=== PATIENT | female | born 1960 | race Caucasian/White ===

== ENCOUNTER 2016-03-17 06:15 | Day surgery (SDC) | payer MEDICAID ==
[2016-03-16 14:46] LABS: BASOPHILS 0.5 % (0.0-2.0); EOSINOPHILS 1.5 % (0-7); HEMATOCRIT 38.5 % (36.0-48.0); IMMATURE GRANULOCYTES 0.3 % (0-5); LYMPHOCYTES 30.1 % (15-50); MCH 29.1 pg (26.0-34.0); MCHC 33.8 g/dL (31.0-37.0); MCV 86.1 fL (80.0-100.0); MEAN PLATELET VOLUME 9.6 fL (7.4-10.4); MONOCYTES 7.9 % (2-11); NEUTROPHILS 59.7 % (40-80); RBC 4.47 10x6/uL (4.00-5.40); RDW 13.9 % (11.5-14.5); WBC 10.2 10x3/uL (4.8-10.8)
[2016-03-16 15:13] LABS: APTT 30.4 SECONDS (22.8-39.4); INR 1.06 (0.85-1.17); PROTIME 13.7 SECONDS (11.6-15.0)
[2016-03-16 15:15] LABS: PLATELET COUNT 338 10x3/uL (130-400)
[~2016-03-17] VITALS: Ht 149.9 cm; Wt 64.0 kg
[~2016-03-17 06:15] MED LIST: ALEVE220 MG PO; ATIVAN0.5 MG PO; NEURONTIN 300300 MG PO; NORCO 7.5/325 T1 TA1 PO
[2016-03-17] MEDS ORDERED: COMBIVENT RESPIM4 GM INH (08:17)
[2016-03-17 08:18] VITALS: Ht 149.9 cm; Wt 64.0 kg
[2016-03-17] MEDS ORDERED: OXYCODONE HCL5 MG PO (12:46)
--- NOTE | 2016-03-17 17:04 | OP ---
PATIENT NAME: CAITLYN RUSH MEDICAL RECORD: [id number] :56 LOCATION:[facility] ADMISSION DATE: SURGEON: KAMERON WORLEY MD DATE OF OPERATION: 03/17/2016 SURGEON: Kameron Worley MD PREOPERATIVE DIAGNOSIS: Left inguinal hernia. POSTOPERATIVE DIAGNOSIS: Left inguinal hernia. PROCEDURE PERFORMED: Left inguinal herniorrhaphy with mesh. ANESTHESIA: General. COMPLICATIONS: None. SPECIMENS: None. Case was clean. ESTIMATED BLOOD LOSS: 20 cc. OPERATIVE COURSE: After consent was obtained, the patient was taken to the operating room and placed in the supine position on the operating table. Next, general anesthesia was given via endotracheal intubation after a timeout was performed that confirmed the correct patient and procedure. The left groin was prepped and draped in typical sterile fashion and Ioban dressing was placed. External landmarks were identified which include the ASIS and pubic tubercle and ilioinguinal nerve block was performed 2 fingerbreadths medial and one fingerbreadth inferior to the ASIS. Transverse skin incision was made with a 15 blade scalpel. Dissection continued to the level of the external oblique fascia using electrocautery. Self-retaining retractors were placed. There was a large indirect inguinal hernia. Local anesthetic was injected in the external oblique fascia. The fascia was incised with 15-blade scalpel. Using Metzenbaum scissors, the push cut technique was used to open the external oblique fascia through the external inguinal ring and it was opened laterally towards the ASIS. Blunt dissection was performed to separate the external oblique fascia from the conjoined tendon and the inguinal ligament. The hernia component was dissected and it was reduced. At this time, a Logan repair was done, reapproximating the conjoined tendon to the inguinal ligament using 0 Vicryl suture. This was then reinforced with a Aliyah repair. A Bard 3DMax mesh was placed into the space. It was secured to the pubic tubercle medially with 2-0 Prolene suture. It was secured along the inguinal ligament with interrupted 2-0 Prolene suture. It was secured to the conjoined tendon with 2-0 Prolene suture. The external oblique fascia was then reapproximated using 2-0 Vicryl suture, subcutaneous Ana was applied. The subcutaneous tissue was closed with 2-0 Vicryl suture. The skin was closed with a 4-0 Stratafix, Mastisol and Steri-Strips. At the end of the case, all needle and instrument counts were correct. No complications occurred. The patient was extubated and transferred to the PACU in stable condition. TRANSINT:[id number] Voice Confirmation ID: [id number] DOCUMENT ID: [id number] OPERATIVE REPORT [id number] CAITLYN RUSH,KAMERON Hale MD at 1704 CC: [id number] DICTATION DATE: 03/17/16 1251 DEVELOPMENT VICE PRESIDENT: 03/17/16 1647 [facility] [address] [place] [address]
== END 2016-03-17 19:05 | disposition home or self-care (01) ==
LOC: D.OPS 06:15 → D.PAN 10:15 → D.OPS 10:15
PROVIDERS: Anesthesiology
DX: K40.90 Unilateral inguinal hernia, without obstruction or gangrene, not specified as recurrent (principal)